=== PATIENT | male | born 1960 | race Caucasian/White ===

== ENCOUNTER 2017-08-12 17:41 | Outpatient (CLI) | END 2017-08-12 17:42 | disposition home or self-care (01) | LOC: FCC-LAB 17:41 | PROVIDERS: ATTEND Family Medicine | DX: E11.9 Type 2 diabetes mellitus without complications (principal) | CPT/HCPCS: 36415; 83037 ==

== ENCOUNTER 2017-10-24 12:01 | Outpatient (CLI) | END 2017-10-24 12:02 | disposition home or self-care (01) | LOC: CAR 12:01 | PROVIDERS: ATTEND Family Medicine | DX: R10.84 Generalized abdominal pain (principal) | CPT/HCPCS: 93005; 93010 ==

== ENCOUNTER 2017-11-13 10:34 | Outpatient (CLI) | END 2017-11-13 10:35 | disposition home or self-care (01) | LOC: FCC-LAB 10:34 | PROVIDERS: ATTEND Family Medicine | DX: N17.9 Acute kidney failure, unspecified (principal); E83.51 Hypocalcemia; E55.9 Vitamin D deficiency, unspecified | CPT/HCPCS: 36415; 81001; 82306; 82570; 84100; 84156 ==

== ENCOUNTER 2018-03-10 09:19 | Outpatient (CLI) | END 2018-03-10 09:20 | disposition home or self-care (01) | LOC: FCC-LAB 09:19 | PROVIDERS: ATTEND Family Medicine | DX: E11.9 Type 2 diabetes mellitus without complications (principal); F33.1 Major depressive disorder, recurrent, moderate | CPT/HCPCS: 36415; 83037 ==